=== PATIENT | male | born 1995 | race Caucasian/White ===

== ENCOUNTER 2016-07-30 01:47 | Emergency (ER) | payer BC ==
[~2016-07-30] VITALS: Ht 185.4 cm; Wt 68.2 kg
[2016-07-30 01:52] VITALS: BP 110/66; PULSE 74; RESP 14; TEMP 98.1; O2SAT 97
[2016-07-30] MEDS ORDERED: SODIUM CHLOR 0.9% 1000 ML INJ 1,000 ML IV SCH (01:59)
[2016-07-30] MEDS ORDERED: PROMETHAZINE INJ 25 MG/ML VIAL IM ONE (02:00)
[2016-07-30] MEDS ORDERED: SODIUM CHLORIDE 0.9% FLUSH 5 ML FLUSH IVF PRN (02:00)
--- NOTE | 2016-07-30 02:06 | PD ---
HPI Chief Complaint: Alcohol/Drug Intoxication Time Seen by Provider: 01:59 Travel History International Travel<30 days: No Contact w/Intl Traveler<30days: No Traveled to known affect area: No History of Present Illness HPI 21-year-old male arrives by EMS. He drank alcohol tonight and a family reunion. As the night went on he became increasingly lethargic and then began vomiting. Last oral intake was pizza. EMS gave Zofran 500 cc of normal saline. On scene blood pressure 120/80, pulse 80, fingerstick glucose 98. Patient reportedly a note 2, unaware of his location/the city. EMS reports also quickly after questioning. Family reports the patient usually does not drink alcohol. In the ER the patient denies pain and confirms that he drank alcohol tonight, beer. He denies any drug abuse. PFSH Past Medical History Medical History: Denies Significant Hx Tetanus Vaccination: Unknown Past Surgical History Surgical History: No Previous Surgery Social History Alcohol Use: Yes Tobacco Use: No Substance Use: No Allergies-Medications (Allergen,Severity, Reaction): Coded Allergies: No Known Allergies (Unverified , 07/30/16) Review of Systems ROS Limitations: Clinical Condition Physical Exam Narrative GENERAL: 21-year-old male well-nourished well-developed EtOH on breath nonbloody emesis about shirt SKIN: Warm and dry. HEAD: Atraumatic. Normocephalic. EYES: Pupils equal and round. No scleral icterus. No injection or drainage. ENT: No nasal bleeding or discharge. Mucous membranes pink and moist. NECK: Trachea midline. No JVD. CARDIOVASCULAR: Regular rate and rhythm. No murmur appreciated. RESPIRATORY: No accessory muscle use. Clear to auscultation. Breath sounds equal bilaterally. GASTROINTESTINAL: Abdomen soft, non-tender, nondistended. Hepatic and splenic margins not palpable. MUSCULOSKELETAL: No obvious deformities. No clubbing. No cyanosis. No edema. NEUROLOGICAL: Moves all extremities. Face appears symmetric. Answers questions with single words. PSYCHIATRIC: EtOH intoxication. Data Data Last Documented VS Vital Signs Date Time Temp Pulse Resp B/P Pulse Ox O2 Delivery O2 Flow Rate FiO2 07/30/16 01:52 98.1 74 14 110/66 97 Orders Promethazine Inj (Phenergan Inj) (07/30/16 02:00) Ecg Monitoring (07/30/16 01:59) Iv Access Insert/Monitor (07/30/16 01:59) Oximetry (07/30/16 01:59) Sodium Chloride 0.9% Flush (Ns Flush) (07/30/16 02:00) Sodium Chlor 0.9% 1000 Ml Inj (Ns 1000 M (07/30/16 01:59) MDM Medical Decision Making Medical Screen Exam Complete: Yes Emergency Medical Condition: Yes Differential Diagnosis Alcohol poisoning, alcohol abuse, alcohol intoxication, polysubstance abuse Narrative Course Patient drank alcohol tonight and arrives intoxicated. He received 1L NS here along w 25 mg IM Phenergan. He'll be observed until he is clinically sober and an adult agricultural education professor is present to take him home. Diagnosis Primary Impression: Alcohol intoxication Qualified Code: F10.129 - Alcohol intoxication, with unspecified complication Additional Impression: Vomiting Qualified Code: R11.10 - Non-intractable vomiting, presence of nausea not specified, unspecified vomiting type Referrals: Primary Care Physician 2 days Additional Instructions: You have a choice when it comes to health care, and we are glad that you chose [facility]. Hopefully, we have met your expectations on today's visit. You are welcome to return to [facility] at any time, as we are committed to meeting the health care needs of our community. Med/Other Pt SpecificInfo: No Change to Meds Disposition: 01 DISCHARGE HOME Condition: Stable Anson Recinos MD Jul 30, 2016 02:06
[2016-07-30 04:33] VITALS: BP 101/59; PULSE 81; RESP 15; O2SAT 100
[2016-07-30 05:00] VITALS: O2SAT 96
== END 2016-07-30 06:39 | disposition home or self-care (01) ==
LOC: NEPC 01:47 → NEPA 06:39
DX: F10.129 Alcohol abuse with intoxication, unspecified (principal); R11.10 Vomiting, unspecified
CPT/HCPCS: 96360; 96372; 99283; J2550; J7030